=== PATIENT | female | born 1975 | race Caucasian/White ===

== ENCOUNTER 2018-12-15 07:20 | Day surgery (SDC) | payer OTHER ==
[~2018-12-15] VITALS: Ht 165.1 cm; Wt 109.0 kg
[~2018-12-15 07:20] MED LIST: ACET325 PO; ALPR.25 PO; AMOX500 PO; CLAR500 PO; DIPH50 PO; ESTR2 PO; Enjuvia0.3 MG PO; HYDACE5 PO; HYDACE5325 PO; IBUP200 PO; IBUP400 PO; MEDR2.5 PO; NAPR500 PO; Premarin0.45 MG PO; Prilosec Otc20 MG PO
--- NOTE | 2018-12-15 07:59 | NUR ---
12/15/18 0759 Barbara Martinez 1 IV MISS IN RW BY RANULFO VALVE 1 GOOD IV IN RAC BY RANULFO PT TOW
== END 2018-12-15 09:30 | disposition home or self-care (01) ==
LOC: ORSCSDS 07:20
PROVIDERS: Internal Medicine Gastroenterology
PROC: 0DB18ZX Excision of Upper Esophagus, Via Natural or Artificial Opening Endoscopic, Diagnostic (ICD-10-PCS; principal; 2018-12-15 08:45)
PROC: 0DB68ZX Excision of Stomach, Via Natural or Artificial Opening Endoscopic, Diagnostic (ICD-10-PCS; principal; 2018-12-15 08:45)
PROC: 0DB38ZX Excision of Lower Esophagus, Via Natural or Artificial Opening Endoscopic, Diagnostic (ICD-10-PCS; principal; 2018-12-15 08:45)
DX: Z87.11 Personal history of peptic ulcer disease (principal); B96.81 Helicobacter pylori [H. pylori] as the cause of diseases classified elsewhere; K22.2 Esophageal obstruction; K29.70 Gastritis, unspecified, without bleeding; K20.9 Esophagitis, unspecified; Z87.891 Personal history of nicotine dependence; Z79.899 Other long term (current) drug therapy
CPT/HCPCS: 88305; 88342; J2704; J7120

== ENCOUNTER 2019-04-30 06:45 | Day surgery (SDC) | payer OTHER ==
[~2019-04-30] VITALS: Ht 165.1 cm; Wt 111.1 kg
[~2019-04-30 06:45] MED LIST changes: +OMEPRAZOLE MAGN20 MG PO
== END 2019-04-30 08:44 | disposition home or self-care (01) ==
LOC: ORSCSDS 06:45
PROVIDERS: Internal Medicine Gastroenterology
PROC: 0DB38ZX Excision of Lower Esophagus, Via Natural or Artificial Opening Endoscopic, Diagnostic (ICD-10-PCS; principal; 2019-04-30 08:00)
PROC: 0DB18ZX Excision of Upper Esophagus, Via Natural or Artificial Opening Endoscopic, Diagnostic (ICD-10-PCS; principal; 2019-04-30 08:00)
DX: K20.0 Eosinophilic esophagitis (principal); D64.9 Anemia, unspecified; Z87.11 Personal history of peptic ulcer disease; F41.8 Other specified anxiety disorders; Z79.899 Other long term (current) drug therapy
CPT/HCPCS: 88305; J0461; J2250; J2405; J2704; J7120

== ENCOUNTER 2019-07-28 06:18 | Inpatient (IN) | payer OTHER ==
[~2019-07-28] VITALS: Ht 167.6 cm; Wt 110.0 kg
[2019-07-28 06:46] LABS: BASOPHILS ABSOLUTE AUTO 0.08 K/mm3 (0.00-0.23); BASOPHILS PERCENT AUTO 1 % (0-2); EOSINOPHILS ABSOLUTE AUTO 0.31 K/mm3 (0.00-0.68); EOSINOPHILS PERCENT AUTO 4 % (0-6); Hematocrit 31.7 % (33.0-51.0); Hemoglobin 10.2 g/dL (11.5-16.0); IMMATURE GRAN ABSOLUTE AUTO 0.03 K/mm3 (0.00-0.10); IMMATURE GRAN PERCENT AUTO 0 % (0-1); LYMPHOCYTES ABSOLUTE AUTO 3.01 K/mm3 (0.84-5.20); LYMPHOCYTES PERCENT AUTO 41 % (21-46); MONOCYTES ABSOLUTE AUTO 0.48 K/mm3 (0.16-1.47); MONOCYTES PERCENT AUTO 7 % (4-13); Mean Corpuscular HGB 34.1 pg (26.0-34.0); Mean Corpuscular HGB Conc 32.2 g/dL (31.5-36.5); Mean Corpuscular Volume 106 fL (80-100); Mean Platelet Volume 8.8 fL (9.1-12.4); NEUTROPHILS ABSOLUTE AUTO 3.36 K/mm3 (1.96-9.15); NEUTROPHILS PERCENT AUTO 46 % (41-73); Platelet Count 560 K/mm3 (150-400); RDW Coefficient Variation 13.8 % (11.7-14.2); RDW Standard Deviation 52.7 fL (35.1-46.3); Red Blood Cell Count 2.99 M/mm3 (3.80-5.20); White Blood Cell Count 7.27 K/mm3 (4.00-11.30)
[2019-07-28 06:56] LABS: Alanine Aminotransfer (ALT/SGP 30 U/L (12-78); Albumin, Blood 3.7 g/dL (3.4-5.0); Albumin/Globulin Ratio 1.1 (0.8-1.8); Alk Phos 104 U/L (50-136); Anion Gap 10 mmol/L (6-16); Aspartate Aminotrans (AST/SGOT 20 U/L (12-37); Bilirubin, Total 0.4 mg/dL (0.1-1.0); Blood Urea Nitrogen 29 mg/dL (8-24); Bun/Creatinine Ratio 32.7 (12.0-20.0); CO2, Blood 21 mmol/L (21-32); Calcium, Blood 8.6 mg/dL (8.5-10.1); Chloride, Blood 110 mmol/L (98-108); Creatinine, Blood 0.89 mg/dL (0.40-1.00); Globulin, Blood 3.5 g/dL (2.2-4.0); Glomerular Filtration Rate >60 (60-); Glucose, Blood 167 mg/dL (70-99); Potassium, Blood 4.4 mmol/L (3.5-5.5); Sodium, Blood 141 mmol/L (136-145); Total Protein, Blood 7.2 g/dL (6.4-8.2)
--- NOTE | 2019-07-28 09:55 | NUR ---
ORIENTED TO ROOM. FREQUENT ROUNDING EXPLAINED. BED LOW AND IN LOCKED POSITION. CALL LIGHT WITHIN REACH. PT CURRENTLY NPO FOR POSSIBLE ENDOSCOPY TODAY.
[2019-07-28] MEDS ORDERED: Estradiol2 MG PO (12:58)
[2019-07-28] MEDS ORDERED: DULO30 PO (12:59)
[2019-07-28] MEDS ORDERED: Flovent 220 Ora12 GM INH (13:00)
--- NOTE | 2019-07-28 14:16 | NUR ---
PT TRANSPORTED TO ENDOSCOPY VIA STRETCHER.
--- NOTE | 2019-07-28 14:23 | NUR ---
INTO [facility] VIA Reading Room. PT A&OX3-REPORTS 8/10 EPIGASTRIC PAIN. PT REPORTS NAUSEA. SKIN APPEARS PALE. HISTORY AND ALLERGIES REVIEWED. NPO STATUS CONFIRMED. LUNGS CLEAR. NO NOTED SOB.
[2019-07-28 14:39] LABS: Hematocrit 27.6 % (33.0-51.0); Hemoglobin 8.7 g/dL (11.5-16.0)
--- NOTE | 2019-07-28 14:46 | NUR ---
07/28/19 1446 Samy Tran History, Chart, Medications and Allergies reviewed before start of procedure.MONITOR INTACT WITH CONTINUOUS PULSE OXIMETRY AND INTERMITTENT BP.3-LEAD EKG REVIEWED WITH PHYSICIAN PRIOR TO START OF PROCEDURE.O2 VIA N/C INTACT THROUGHOUT SEDATION/PROCEDURE. PATIENT DETERMINED TO BE ASA APPROPRIATE FOR PROPOFOL SEDATION PRIOR TO START OF PROCEDURE BY DR. THOMPSON.
--- NOTE | 2019-07-28 16:00 | NUR ---
ARRIVED TO ROOM FROM EGD. C/O ABDOMINAL PAIN. CALLED DR. CEBALLOS FOR NEW ORDER FOR PAIN MEDICATION.
--- NOTE | 2019-07-28 16:25 | NUR ---
DR. THOMPSON AT BEDSIDE AND AWARE OF PT'S PAIN LEVEL.
--- NOTE | 2019-07-28 16:57 | NUR ---
PT TRANSPORTED TO [facility] VIA STRETCHER.
[2019-07-28 17:28] LABS: Hematocrit 25.6 % (33.0-51.0); Hemoglobin 8.3 g/dL (11.5-16.0)
--- NOTE | 2019-07-28 19:35 | NUR ---
MAO VISITING WITH FAMILY, STATES PAIN TO ABDOMEN IS 8/10. INFORMED MD JUST PUT NEW MED ORDER, AND SHE IS AN HOUR FROM GETTING IT. SHE STATES SHE WILL WAIT. IV FLUIDS STARTED WITH PROTONIX INFUSING CONCURRENT. DENIES NAUSEA. SHE DID HAVE LARGE BLOODY BM AT START OF SHIFT. WILL CONTINUE TO MONITOR. ASSESSMENT COMPLETED SEE CHART. CALL LIGHT IN REACH.
[2019-07-28 19:53] LABS: Hematocrit 23.8 % (33.0-51.0); Hemoglobin 7.6 g/dL (11.5-16.0)
[2019-07-28 22:20] LABS: Hematocrit 23.9 % (33.0-51.0); Hemoglobin 7.6 g/dL (11.5-16.0)
[2019-07-29 04:54] LABS: Hematocrit 23.8 % (33.0-51.0); Hemoglobin 7.4 g/dL (11.5-16.0)
--- NOTE | 2019-07-29 05:35 | NUR ---
SHIFT SUMMARY: 43 Y/O FEMALE ADMITTED FOR ACUTE BLOOD LOSS/GIB. SHE HAS HAD TWO BLOODY STOOLS THIS SHIFT. ONE THAT MODERATE AMOUNT IN THE TOILET AND SECOND ONE WITH CLOTS ONLY. SHE HAS HAD 8/10 PAIN OFF AND ON THIS SHIFT. USE OF DILAUDID AND FENTANYL HAS RELEIVED IT TO A 4 EACH TIME. DENIES NAUSEA. PASSING FLATUS. ABLE TO INDEPENDENTLY GO TO THE BATHROOM WITH NO LIGHTHEADNESS OR DIZZY SPELLS. IV FLUIDS AND PROTONIX HAS BEEN INFUSING WITH NO PROBLEMS. CALL LIGHT HAS REMAINED WITH IN REACH AND USED APPROPRIATLY. WILL REPORT TO DAY SHIFT RN.
[2019-07-29] MEDS ORDERED: [UNRECOGNIZED DRUG - CODE] INH (10:38)
[2019-07-29 11:21] LABS: Hematocrit 24.9 % (33.0-51.0)
[2019-07-29] MEDS ORDERED: OMEP20ER PO (12:46)
[2019-07-29] MEDS ORDERED: FLOVENT INH (12:47)
--- NOTE | 2019-07-29 18:45 | NUR ---
SHIFT SUMMARY PT AXO, PLEASANT AND COOPERATIVE WITH CARE. PT COMPLAINED OF DANIELLE, MEDICATED PER EMAR. POWERGLIDE IN YASMANI, INFUSING PER EMAR. NUC MED SCAN THIS SHIFT, SEE IMAGING. NO BM THIS SHIFT. PT DENIES ABDOMINAL PAIN AND BLEEDING. BED IN LOW POSITION, CALL LIGHT WITHIN REACH. PT TOLERATING CLEAR LIQUID DIET AT THIS TIME.
--- NOTE | 2019-07-29 20:56 | NUR ---
PATIENT RESTING IN THE ROOM, STATES SHE HAS A HEADACHE BUT DENIES ANY OTHER PAIN OR DISCOMFORT. WILL MEDICATE WITH DIALUDID. IV FLUIDS AND PROTONIX INFUSING WITH NO PROBLEMS, CALL LIGHT IN REACH. WILL CONTINUE TO MONTIOR.
--- NOTE | 2019-07-30 05:23 | NUR ---
SHIFT SUMMARY: 43 Y/O FEMALE ADMITTED FOR ACUTE BLOOD LOSS AND GIB. HAS REMAINED STABLE THROUGHOUT THE NIGHT. REPORTED HEADACHE OFF AND ON WHICH WAS RELEIVED BY DILAUDID. IV CONTINUED TO INFUSE NORMAL SALINE AND PROTONIX WITH NO ISSUES. TOLERATING FULL LIQUID WITH NO NAUSEA OR PAIN. SLEPT 90% OF THE SHIFT. CALL LIGHT REMAINED IN REACH. WILL REPORT OFF TO DAY SHIFT.
--- NOTE | 2019-07-30 07:00 | NUR ---
ASSUMED CARE OF PT- BEDSIDE REPORT COMPLETED WITH NIGHT RN WILLIE. PT ALERT AND ORIENTED, INDEPENDENT IN THE ROOM. NO BLEEDING NOTED T/O THE NIGHT PER REPORT. PTHGB UP TO 8.0 ON LAST CHECK. SEEMS TO BE HOLDING STABLE AT THIS TIME WILL CTM.
--- NOTE | 2019-07-30 09:00 | NUR ---
PT ANBULATED IN THE ONEAL WITH SBA. AMBULATED ONE TURN AROUND THE UNIT AND BECAME TIRED. LAB ARRIVED FOR LINE DRAW TO CHECK H&H.
[2019-07-30 09:47] LABS: Hematocrit 21.5 % (33.0-51.0); Hemoglobin 6.9 g/dL (11.5-16.0)
--- NOTE | 2019-07-30 10:00 | NUR ---
CALLED DR CEBALLOS PT HGB 6.9 ON MORNING LAB. WAITING FOR A CALL BACK. CALLED DR THOMPSON HE ORDERED A CTA OF THE ABDOMEN AND PELVIS. PT HAS HAD NO SIGNS OF BLEED AND HAS NO S&S OF DISTRESS NOTED AT THIS TIME. WILL CTM.
--- NOTE | 2019-07-30 11:00 | NUR ---
CALLED DR CEBALLOS- PT NOW SYMPTOMATIC, SHE GOT UP INTO THE BATHROOM AND BECAME DIAPHORETIC, COLD, SHAKEY, NAUSEOUS, AND "CONFUSED" (PT STATED). SPOKE TO DR CEBALLOS. PT ALSO HAS AN ALLERGY TO IODINE, PER DR CEBALLOS CALL DR LE ABOUT THE CTA IODINE ALLERGY, PT STATED IV CONTRAST CAUSES SEVERE HIVES. PT VEWS SCORE IS 3 RESP RATE ELEVATED PT C/O SOB.
--- NOTE | 2019-07-30 11:20 | NUR ---
CALLED DR THOMPSON- SPOKE ABOUT PT ALLERGY. REQUESTED PREMEDICATION PROTOCOL, STATED CHECK STAT H&H AND WE WILL SE ABOUT THE CTA VS UPPER ENDOSCOPY. ORDER FOR [address] CEBALLOS. ORDERED TO HOLD FOR RESULT OF H&H BY DR THOMPSON.
--- NOTE | 2019-07-30 12:00 | NUR ---
CALLED DR THOMPSON WITH H&H RESULT, CANCEL THE CTA INFUSE 1 UNIT PRBC AND HOLD THE SECOND. PT WILL GO FOR UPPER ENDOSCOPY [id number] TIME FRAME.
[2019-07-30 12:12] LABS: Hematocrit 21.3 % (33.0-51.0); Hemoglobin 7.2 g/dL (11.5-16.0)
--- NOTE | 2019-07-30 15:54 | NUR ---
PT FINISHING UP PRBC UNIT. Patient up to Ambulate independently. Gait steady. History, Chart, Medications and Allergies reviewed before start of procedure.Lungs clear T/O to Auscultation. Patient confirms NPO status and agrees with scheduled surgery.
--- NOTE | 2019-07-30 17:49 | NUR ---
07/30/19 1749 Sarah Caceres History, Chart, Medications and Allergies reviewed before start of procedure.PATIENT DETERMINED TO BE ASA APPROPRIATE FOR PROPOFOL SEDATION PRIOR TO START OF PROCEDURE BY .MONITOR INTACT WITH CONTINUOUS PULSE OXIMETRY AND INTERMITTENT BP.3-LEAD EKG REVIEWED WITH PHYSICIAN PRIOR TO START OF PROCEDURE.O2 VIA N/C INTACT THROUGHOUT SEDATION/PROCEDURE.
[2019-07-30 18:32] LABS: Hematocrit 23.5 % (33.0-51.0); Hemoglobin 7.9 g/dL (11.5-16.0)
--- NOTE | 2019-07-30 18:49 | NUR ---
HOLD 2ND UNIT PRBC'S PER DR THOMPSON
--- NOTE | 2019-07-30 19:24 | NUR ---
SHIFT SUMMARY- PT ALERT AND ORIENTED TIRED POST OP. POST OP VITALS HAVE REMAINED STABLE. PT STATED A HEADACHE ON BEDSIDE REPORT. NIGHT RN AWARE AND WILL MEDICATE. PT HAS ONE MORE SET OF Q 30 MINUTE VITALS BEFORE Q1 HOUR BEGINS. PT DENIES NAUSEA AND ABDOMINAL PAIN AT THIS TIME. NIGHT RN WILLIE AWARE. PROTONIX AND NS CONCURRENTLY INFUSING THROUGH PG IN RIGHT UPPER ARM.
--- NOTE | 2019-07-30 20:24 | NUR ---
PATIENT ON POST OP VITALS. SHE STATES NO PAIN OR DISCOMFORT OTHER THEN MILD HEADACHE. NO NAUSEA. DENIES ANY BOWEL MOVEMENT TODAY. IV PROTONIX HUNG, INFUSING WITH IV FLUIDS. DENIES ANY NEEDS AT THIS TIME. ASSESSMENT COMPLETED. CALL LIGHT IN REACH.
--- NOTE | 2019-07-30 21:40 | NUR ---
MD CALLED IN REGARDS FOR TYLENOL FOR HEADACHES. ORDER WAS RECEIVED.
--- NOTE | 2019-07-31 05:34 | NUR ---
SHIFT SUMMARY: 43 Y/O FEMALE ADMITTED FOR GI BLEED. HAS BEEN RESTING THE ENTIRE SHIFT. SHE HAS GOTTEN UP INDEPENDENTLY TO THE BATHROOM. MD WAS CALLED ONCE FOR TYLENOL FOR HEADACHE, SHE TOOK ONE DOSE. NO OTHER PAIN WAS NOTED. NO NAUSEA, OR BOWEL MOVMENTS THIS SHIFT OR ANY OTHER ACUTE CHANGES. WILL REPORT TO DAY SHIFT RN.
--- NOTE | 2019-07-31 07:30 | NUR ---
ASSUMED CARE OF PT- BEDSIDE REPORT COMPLETED WITH NIGHT RN WILLIE. PT SLEEPING AT THE TIME OF REPORT, NO BM T/O THE NIGHT PT ON FULL LIQUID DIET. NOTED NO REPEAT H&H ORDERED, ANTHONY CALL DR CEBALLOS FOR AN ORDER SHORTLY, NO S&S OF DISTRESS NOTED AT THIS TIME WILL CTM.
[2019-07-31 09:25] LABS: BASOPHILS ABSOLUTE AUTO 0.06 K/mm3 (0.00-0.23); BASOPHILS PERCENT AUTO 1 % (0-2); EOSINOPHILS ABSOLUTE AUTO 0.08 K/mm3 (0.00-0.68); EOSINOPHILS PERCENT AUTO 1 % (0-6); Hematocrit 25.4 % (33.0-51.0); Hemoglobin 8.2 g/dL (11.5-16.0); IMMATURE GRAN ABSOLUTE AUTO 0.03 K/mm3 (0.00-0.10); IMMATURE GRAN PERCENT AUTO 0 % (0-1); LYMPHOCYTES ABSOLUTE AUTO 1.39 K/mm3 (0.84-5.20); LYMPHOCYTES PERCENT AUTO 18 % (21-46); MONOCYTES ABSOLUTE AUTO 0.48 K/mm3 (0.16-1.47); MONOCYTES PERCENT AUTO 6 % (4-13); Mean Corpuscular HGB 33.1 pg (26.0-34.0); Mean Corpuscular HGB Conc 32.3 g/dL (31.5-36.5); Mean Platelet Volume 8.9 fL (9.1-12.4); NEUTROPHILS ABSOLUTE AUTO 5.91 K/mm3 (1.96-9.15); NEUTROPHILS PERCENT AUTO 74 % (41-73); Platelet Count 341 K/mm3 (150-400); RDW Coefficient Variation 16.8 % (11.7-14.2); Red Blood Cell Count 2.48 M/mm3 (3.80-5.20); White Blood Cell Count 7.95 K/mm3 (4.00-11.30)
[2019-07-31 09:27] LABS: Mean Corpuscular Volume 102 fL (80-100)
[2019-07-31 09:43] LABS: Anion Gap 10 mmol/L (6-16); Blood Urea Nitrogen 5 mg/dL (8-24); Bun/Creatinine Ratio 8.9 (12.0-20.0); CO2, Blood 21 mmol/L (21-32); Calcium, Blood 8.5 mg/dL (8.5-10.1); Chloride, Blood 109 mmol/L (98-108); Creatinine, Blood 0.56 mg/dL (0.40-1.00); Glomerular Filtration Rate >60 (60-); Glucose, Blood 94 mg/dL (70-99); Potassium, Blood 3.3 mmol/L (3.5-5.5); Sodium, Blood 140 mmol/L (136-145)
--- NOTE | 2019-07-31 18:03 | NUR ---
SHIFT SUMMARY- PT H&H SEEMS TO BE STABILIZING HGB 8.2 THIS MORNING. PT DENIES ANY PAIN WALKED IN THE HALLS AND T/O THE HOSPITAL WITH HER FAMILY WITHOUT ANY SYMPTOMS. PT HAD A SMALL DARK BROWN BM THIS EVENING WITH A SMNALL BLOOD CLOT, APPEARS TO BE ABOUT THE SIZE OF A QUARTER IN THE BOTTOM OF THE TOULET BOWL. PT BECAME UPSET THAT THIS COULD MEAN SHE IS GOING TO START BLEEDING AGAIN AND SENT HER FAMILY HOME. LAST VITALS WERE ELEVATED POSSIBLY R/T PT ANXIETY ABOUT NOT GETTING TO GO HOME TOMORROW. IV PROTONIX SWITCHED TO BID BOLUS RATHER THAN CONT. PT HAD A FULL SHOWER TODAY. REPEAT H&H ORDERED FOR TOMORROW MORNING. PG IN RIGHT UPPER ARM IS SL, CAP CANGED TODAY DRAWS WELL.
[2019-08-01 05:29] LABS: Hematocrit 23.8 % (33.0-51.0); Hemoglobin 7.9 g/dL (11.5-16.0)
--- NOTE | 2019-08-01 07:08 | NUR ---
SHIFT SUMMARY LYING IN SEMI FOWLERS WITH EYES CLOSED. HAD RESTED WELL SINCE START OF SHIFT. H&H DRAWN BY RN, HGB 7.9 THIS AM. PT IS LOOKING FORWARD TO GOING HOME TODAY. DENIES PAIN, DISCOMFORT, OR FURTHER NEEDS AT THIS TIME. SAFETY MEASURES IN PLACE. HAND OFF GIVEN TO DAY SHIFT RN.
--- NOTE | 2019-08-01 16:50 | NUR ---
DISCHARGE NOTE- PT WAS GIVEN VERBAL AND WRITTEN DISCHARGE INSTRUCTIONS AND ACKNOWLEDGED UNDERSTANDING OF THEM. PG DC'D AT THE TIME OF DISCHARGE. PT HAD NO FURTHER QUESTIONS AT THE TIME OF DISCHARGE. NO S&S OF DISTRESS NOTED T/O THE DAY. PT SPOUSE PUSHED HER OUT IN A W/C PT FAMILY PRESENT AT THE TIME OF DISCHARGE.
== END 2019-08-01 13:45 | disposition home or self-care (01) | DRG 378 ==
LOC: ER 06:18 → MEDS 06:19
PROVIDERS: Emergency Medicine; Internal Medicine Gastroenterology; Nurse Practitioner Acute Care; ADMIT Hospitalist
PROC: 0D598ZZ Destruction of Duodenum, Via Natural or Artificial Opening Endoscopic (ICD-10-PCS; 2019-07-28 12:30)
PROC: 3E0G8GC Introduction of Other Therapeutic Substance into Upper GI, Via Natural or Artificial Opening Endoscopic (ICD-10-PCS; 2019-07-30)
PROC: 0W3P8ZZ Control Bleeding in Gastrointestinal Tract, Via Natural or Artificial Opening Endoscopic (ICD-10-PCS; principal; 2019-07-30 16:00)
DX: K26.4 Chronic or unspecified duodenal ulcer with hemorrhage (principal); D62 Acute posthemorrhagic anemia; K20.0 Eosinophilic esophagitis; E66.01 Morbid (severe) obesity due to excess calories; Z68.38 Body mass index [BMI] 38.0-38.9, adult
CPT/HCPCS: 36415; 36430; 71045; 74019; 78278; 80048; 80053; 83690; 85014; 85018; 85025; 86850; 86870; 86900; 86901; 86902; 86922; 94640; 94760; 96361; 96365; 96366; 96375; 96376; 99285-25; A9270; A9560; C9113; G0378; J0171; J1170; J2250; J2405; J2704; J2765; J3010; J7030; J7120; P9016

== ENCOUNTER 2019-08-17 14:09 | Day surgery (SDC) | payer OTHER ==
--- NOTE | 2019-08-17 18:09 | NUR ---
IV SITE IV TO RIGHT AC PATENT AND INFUSING WITHOUT DIFFICULTY. IV WAS PLACED AT [facility] PER PT.
--- NOTE | 2019-08-17 19:55 | NUR ---
PATIENT RESTING IN ROOM, BLOOD IS INFUSING WITH NO PROBLEMS. ALMOST FINISHED. SWITCHED TO FLUSH, AND SENT FOR NEW BAG OF BLOOD. VS HAVE BEEN STABLE, NO SIGNS OF REACTION NOTED. WILL CONTINUE TO MONITOR.
--- NOTE | 2019-08-17 22:54 | NUR ---
PATIENT COMPLETED HER 2 UNITS OF PRBC WITH NO REACTIONS, VITALS REMAINED STABLE. IV WAS FLUSHED BETWEEN UNITS AND AFTER INFUSIONS,. IV DISCHARGED WITH NO PROBLEMS. ENCOURAGED TO FOLLOW UP WITH PBC AND IF THERE IS NEW SYMPTOMS TO REPORT TO ER. PATIENT IS DISCHARGED.
== END 2019-08-17 22:54 | disposition home or self-care (01) ==
LOC: TRN 14:09 → MEDS 22:54 → TRN 22:54 → EDSTATUS 08-18 11:25
PROC: 30243N1 Transfusion of Nonautologous Red Blood Cells into Central Vein, Percutaneous Approach (ICD-10-PCS; principal; 2019-08-17)
DX: D64.9 Anemia, unspecified (principal); F41.9 Anxiety disorder, unspecified; F32.9 Major depressive disorder, single episode, unspecified; Z91.041 Radiographic dye allergy status; Z79.899 Other long term (current) drug therapy; Z95.1 Presence of aortocoronary bypass graft; Z79.52 Long term (current) use of systemic steroids
CPT/HCPCS: 36430; 86850; 86900; 86901; 86902; 86922; J7050; P9016

== ENCOUNTER → 2019-08-17 | Outpatient (CLI) | payer OTHER ==
[~2019-08-17] MED LIST changes: +DULO30 PO; +Estradiol2 MG PO; +FLOVENT INH; +Flovent 220 Ora12 GM INH; +OMEP20ER PO; +[UNRECOGNIZED DRUG - CODE] INH
[2019-08-17 11:45] LABS: Hematocrit 23.1 % (33.0-51.0); Hemoglobin 7.2 g/dL (11.5-16.0); Mean Corpuscular HGB 32.4 pg (26.0-34.0); Mean Corpuscular HGB Conc 31.2 g/dL (31.5-36.5); Mean Corpuscular Volume 104 fL (80-100); Mean Platelet Volume 8.9 fL (9.1-12.4); Platelet Count 512 K/mm3 (150-400); RDW Standard Deviation 59.8 fL (35.1-46.3); Red Blood Cell Count 2.22 M/mm3 (3.80-5.20); White Blood Cell Count 11.88 K/mm3 (4.00-11.30)
[2019-08-17 12:16] LABS: Percent Saturation 27.9 % (15.0-50.0)
== END ==
LOC: LAB 11:24 → LAB SHORT 11:24
PROVIDERS: Internal Medicine Hematology & Oncology
DX: D50.9 Iron deficiency anemia, unspecified (principal)
CPT/HCPCS: 82728; 83540; 83550; 85027

== ENCOUNTER → 2019-08-19 | Outpatient (CLI) | payer OTHER ==
[2019-08-19 13:47] LABS: Hematocrit 27.3 % (33.0-51.0); Hemoglobin 8.7 g/dL (11.5-16.0); Mean Corpuscular HGB 31.8 pg (26.0-34.0); Mean Corpuscular HGB Conc 31.9 g/dL (31.5-36.5); Mean Platelet Volume 9.1 fL (9.1-12.4); Platelet Count 434 K/mm3 (150-400); RDW Coefficient Variation 17.7 % (11.7-14.2); RDW Standard Deviation 61.8 fL (35.1-46.3); Red Blood Cell Count 2.74 M/mm3 (3.80-5.20); White Blood Cell Count 7.39 K/mm3 (4.00-11.30)
[2019-08-19 13:48] LABS: Mean Corpuscular Volume 100 fL (80-100)
== END | disposition home or self-care (01) ==
LOC: LAB 12:49 → LAB SHORT 12:49
PROVIDERS: Internal Medicine Hematology & Oncology
DX: D64.9 Anemia, unspecified (principal)
CPT/HCPCS: 85027

== ENCOUNTER → 2019-08-25 | Outpatient (CLI) | payer OTHER ==
[2019-08-25 13:23] LABS: Hematocrit 31.6 % (33.0-51.0); Hemoglobin 10.1 g/dL (11.5-16.0); Mean Corpuscular HGB 33.3 pg (26.0-34.0); Mean Corpuscular Volume 104 fL (80-100); Platelet Count 468 K/mm3 (150-400); RDW Standard Deviation 72.9 fL (35.1-46.3); Red Blood Cell Count 3.03 M/mm3 (3.80-5.20); White Blood Cell Count 8.05 K/mm3 (4.00-11.30)
== END | disposition home or self-care (01) ==
LOC: LAB 13:00 → LAB SHORT 13:00
PROVIDERS: Internal Medicine Hematology & Oncology
DX: D64.9 Anemia, unspecified (principal)
CPT/HCPCS: 85027

== ENCOUNTER → 2019-09-03 | Outpatient (CLI) | payer OTHER ==
[2019-09-03 11:57] LABS: Hematocrit 32.9 % (33.0-51.0); Hemoglobin 10.3 g/dL (11.5-16.0); Mean Corpuscular HGB 34.3 pg (26.0-34.0); Mean Corpuscular HGB Conc 31.3 g/dL (31.5-36.5); Mean Platelet Volume 8.8 fL (9.1-12.4); Platelet Count 607 K/mm3 (150-400); RDW Coefficient Variation 18.1 % (11.7-14.2); RDW Standard Deviation 72.8 fL (35.1-46.3); White Blood Cell Count 5.57 K/mm3 (4.00-11.30)
[2019-09-03 11:58] LABS: Mean Corpuscular Volume 110 fL (80-100)
== END | disposition home or self-care (01) ==
LOC: LAB 11:50 → LAB SHORT 11:50
PROVIDERS: Internal Medicine Hematology & Oncology
DX: D64.9 Anemia, unspecified (principal)
CPT/HCPCS: 85027

== ENCOUNTER → 2020-07-03 | Outpatient (CLI) | payer OTHER ==
[~2020-07-03] MED LIST changes: +DULOXETINE HCL60 M1 PO; +HYDR1TAB94 PO; +LOPE2C PO; +MEDR2.5; +ONDA4ODT SL; +PROG100 PO
[2020-07-03 09:46] LABS: BASOPHILS ABSOLUTE AUTO 0.07 K/mm3 (0.00-0.23); BASOPHILS PERCENT AUTO 1 % (0-2); EOSINOPHILS ABSOLUTE AUTO 0.14 K/mm3 (0.00-0.68); EOSINOPHILS PERCENT AUTO 2 % (0-6); Hemoglobin 11.6 g/dL (11.5-16.0); IMMATURE GRAN ABSOLUTE AUTO 0.03 K/mm3 (0.00-0.10); IMMATURE GRAN PERCENT AUTO 0 % (0-1); LYMPHOCYTES ABSOLUTE AUTO 2.07 K/mm3 (0.84-5.20); LYMPHOCYTES PERCENT AUTO 30 % (21-46); MONOCYTES PERCENT AUTO 6 % (4-13); Mean Corpuscular HGB 32.6 pg (26.0-34.0); Mean Corpuscular HGB Conc 31.4 g/dL (31.5-36.5); Mean Corpuscular Volume 104 fL (80-100); Mean Platelet Volume 8.6 fL (9.1-12.4); NEUTROPHILS ABSOLUTE AUTO 4.16 K/mm3 (1.96-9.15); NEUTROPHILS PERCENT AUTO 61 % (41-73); Platelet Count 575 K/mm3 (150-400); RDW Coefficient Variation 15.5 % (11.7-14.2); RDW Standard Deviation 59.3 fL (35.1-46.3); Red Blood Cell Count 3.56 M/mm3 (3.80-5.20); White Blood Cell Count 6.87 K/mm3 (4.00-11.30)
[2020-07-03 09:54] LABS: Alanine Aminotransfer (ALT/SGP 22 U/L (12-78); Albumin, Blood 4.4 g/dL (3.4-5.0); Albumin/Globulin Ratio 1.1 (0.8-1.8); Alk Phos 159 U/L (50-136); Anion Gap 8 mmol/L (6-16); Aspartate Aminotrans (AST/SGOT 14 U/L (12-37); Bilirubin, Total 0.4 mg/dL (0.1-1.0); Blood Urea Nitrogen 15 mg/dL (8-24); Bun/Creatinine Ratio 20.5 (12.0-20.0); CO2, Blood 21 mmol/L (21-32); Calcium, Blood 9.1 mg/dL (8.5-10.1); Chloride, Blood 107 mmol/L (98-108); Creatinine, Blood 0.73 mg/dL (0.40-1.00); Globulin, Blood 4.1 g/dL (2.2-4.0); Glomerular Filtration Rate >60 (60-); Glucose, Blood 76 mg/dL (70-99); Potassium, Blood 4.1 mmol/L (3.5-5.5); Sodium, Blood 136 mmol/L (136-145); Total Protein, Blood 8.5 g/dL (6.4-8.2)
[2020-07-03 21:35] LABS: Percent Saturation 17.9 % (15.0-50.0)
== END | disposition home or self-care (01) ==
LOC: LAB 09:01 → LAB SHORT 09:01
PROVIDERS: Internal Medicine Hematology & Oncology
DX: D64.9 Anemia, unspecified (principal)
CPT/HCPCS: 80053; 82728; 83540; 83550; 85025

== ENCOUNTER 2021-07-25 10:43 | Day surgery (SDC) | payer OTHER ==
[~2021-07-25] VITALS: Ht 165.1 cm; Wt 122.4 kg
== END 2021-07-25 13:23 | disposition home or self-care (01) ==
LOC: ORSCSDS 10:43
PROVIDERS: Internal Medicine Gastroenterology
PROC: 0DB78ZX Excision of Stomach, Pylorus, Via Natural or Artificial Opening Endoscopic, Diagnostic (ICD-10-PCS; principal; 2021-07-25 12:15)
PROC: 0DB58ZX Excision of Esophagus, Via Natural or Artificial Opening Endoscopic, Diagnostic (ICD-10-PCS; principal; 2021-07-25 12:15)
DX: K20.0 Eosinophilic esophagitis (principal); Z87.19 Personal history of other diseases of the digestive system; E66.01 Morbid (severe) obesity due to excess calories; Z68.41 Body mass index [BMI] 40.0-44.9, adult; Z79.899 Other long term (current) drug therapy
CPT/HCPCS: 88305; 88342; J2370; J2704; J3010

== ENCOUNTER 2021-12-21 11:47 | Day surgery (SDC) | payer OTHER ==
[~2021-12-21] VITALS: Ht 167.6 cm; Wt 124.4 kg
== END 2021-12-21 14:25 | disposition home or self-care (01) ==
LOC: ORSCSDS 11:47
PROVIDERS: Internal Medicine Gastroenterology
PROC: 0DB58ZX Excision of Esophagus, Via Natural or Artificial Opening Endoscopic, Diagnostic (ICD-10-PCS; principal; 2021-12-21 13:00)
PROC: 0DB68ZX Excision of Stomach, Via Natural or Artificial Opening Endoscopic, Diagnostic (ICD-10-PCS; principal; 2021-12-21 13:00)
DX: R10.13 Epigastric pain (principal); Z87.11 Personal history of peptic ulcer disease; K20.0 Eosinophilic esophagitis; E66.01 Morbid (severe) obesity due to excess calories; Z68.42 Body mass index [BMI] 45.0-49.9, adult; Z79.899 Other long term (current) drug therapy
CPT/HCPCS: 88305; 88342; A9270; J0330; J0461; J2405; J2704; J3010; J7120

== ENCOUNTER → 2022-07-09 | Outpatient (CLI) | payer OTHER ==
[2022-07-09 12:39] LABS: BASOPHILS ABSOLUTE AUTO 0.06 K/mm3 (0.00-0.23); BASOPHILS PERCENT AUTO 1 % (0-2); EOSINOPHILS ABSOLUTE AUTO 0.21 K/mm3 (0.00-0.68); EOSINOPHILS PERCENT AUTO 2 % (0-6); Hematocrit 37.3 % (33.0-51.0); Hemoglobin 12.3 g/dL (11.5-16.0); IMMATURE GRAN ABSOLUTE AUTO 0.06 K/mm3 (0.00-0.10); IMMATURE GRAN PERCENT AUTO 1 % (0-1); LYMPHOCYTES ABSOLUTE AUTO 2.22 K/mm3 (0.84-5.20); LYMPHOCYTES PERCENT AUTO 24 % (21-46); MONOCYTES ABSOLUTE AUTO 0.51 K/mm3 (0.16-1.47); MONOCYTES PERCENT AUTO 5 % (4-13); Mean Corpuscular HGB 35.2 pg (26.0-34.0); Mean Corpuscular Volume 107 fL (80-100); Mean Platelet Volume 8.4 fL (9.1-12.4); NEUTROPHILS ABSOLUTE AUTO 6.33 K/mm3 (1.96-9.15); NEUTROPHILS PERCENT AUTO 68 % (41-73); Platelet Count 572 K/mm3 (150-400); RDW Coefficient Variation 13.8 % (11.7-14.2); Red Blood Cell Count 3.49 M/mm3 (3.80-5.20); White Blood Cell Count 9.39 K/mm3 (4.00-11.30)
[2022-07-09 12:59] LABS: Albumin, Blood 3.9 g/dL (3.4-5.0); Bilirubin, Total 0.4 mg/dL (0.1-1.0); Bun/Creatinine Ratio 16.3 (12.0-20.0); Calcium, Blood 9.3 mg/dL (8.5-10.1); Creatinine, Blood 0.73 mg/dL (0.40-1.00); Globulin, Blood 4.1 g/dL (2.2-4.0); Percent Saturation 55.6 % (15.0-50.0); Potassium, Blood 4.1 mmol/L (3.5-5.5)
== END ==
LOC: LAB SHORT 12:30 → LAB 12:30
PROVIDERS: Registered Nurse Oncology
DX: D64.9 Anemia, unspecified (principal); D50.9 Iron deficiency anemia, unspecified
CPT/HCPCS: 80053; 82728; 83540; 83550; 85025

== ENCOUNTER → 2022-07-10 | Outpatient (CLI) | payer OTHER | LOC: LAB 11:54 → LAB SHORT 11:54 | PROVIDERS: Registered Nurse Oncology | DX: D75.839 Thrombocytosis, unspecified (principal); D64.9 Anemia, unspecified; D50.9 Iron deficiency anemia, unspecified | CPT/HCPCS: 81270 ==

== ENCOUNTER → 2022-07-18 | Outpatient (CLI) | payer OTHER ==
[2022-07-18 18:00] LABS: BASOPHILS ABSOLUTE AUTO 0.04 K/mm3 (0.00-0.23); BASOPHILS PERCENT AUTO 0 % (0-2); EOSINOPHILS PERCENT AUTO 1 % (0-6); Hematocrit 35.4 % (33.0-51.0); Hemoglobin 11.6 g/dL (11.5-16.0); IMMATURE GRAN ABSOLUTE AUTO 0.05 K/mm3 (0.00-0.10); IMMATURE GRAN PERCENT AUTO 1 % (0-1); LYMPHOCYTES ABSOLUTE AUTO 2.34 K/mm3 (0.84-5.20); LYMPHOCYTES PERCENT AUTO 26 % (21-46); MONOCYTES ABSOLUTE AUTO 0.58 K/mm3 (0.16-1.47); MONOCYTES PERCENT AUTO 6 % (4-13); Mean Corpuscular HGB 35.9 pg (26.0-34.0); Mean Corpuscular HGB Conc 32.8 g/dL (31.5-36.5); Mean Corpuscular Volume 110 fL (80-100); Mean Platelet Volume 8.4 fL (9.1-12.4); NEUTROPHILS ABSOLUTE AUTO 5.89 K/mm3 (1.96-9.15); NEUTROPHILS PERCENT AUTO 66 % (41-73); Platelet Count 669 K/mm3 (150-400); RDW Coefficient Variation 14.9 % (11.7-14.2); RDW Standard Deviation 59.8 fL (35.1-46.3); Red Blood Cell Count 3.23 M/mm3 (3.80-5.20)
[2022-07-18 18:11] LABS: C-REACTIVE PROTEIN, EXT RANGE 0.69 mg/dL (0.000-0.300)
== END | disposition home or self-care (01) ==
LOC: LAB SHORT 14:20 → LAB 14:20
PROVIDERS: Registered Nurse Oncology
DX: D75.839 Thrombocytosis, unspecified (principal); D53.9 Nutritional anemia, unspecified; D50.9 Iron deficiency anemia, unspecified
CPT/HCPCS: 82607; 82746; 85025; 85060; 85651; 86140